=== PATIENT | female | born 1995 | race Caucasian/White ===

== ENCOUNTER 2019-08-11 10:05 | Outpatient (CLI) | payer OTHER ==
[2019-08-12 12:10] LABS: SARS-CoV-2 N Gene Positive; SARS-CoV-2 S Gene Positive; SARS-CoV-2 orf1ab Positive
[2019-08-12 12:11] LABS: SARS-CoV-2 MS2 Positive
== END 2019-08-11 10:06 | disposition home or self-care (01) ==
LOC: LABBT 10:05
PROVIDERS: ATTEND Student in an Organized Health Care Education/Training Program
DX: Z01.812 Encounter for preprocedural laboratory examination (principal); Z20.828 Contact with and (suspected) exposure to other viral communicable diseases
CPT/HCPCS: 87635; U0003

== ENCOUNTER 2019-08-14 18:00 | Inpatient (IN) | payer OTHER, SELFPAY ==
[~2019-08-14 18:00] MED LIST: Bupivacaine/Epinephrine 0.25% 30 ML VIAL ONE; EPHEDRINE 25 MG/5 ML SYRINGE ONE
--- NOTE | 2019-08-14 22:42 | PDOC.FPROB ---
FMR OB H&P: HPI - History of Present Illness Chief Complaint: mIOL Indentification: at 39.0 wks by LMP c/w 11.5 wk sono History of Present Illness: Pt is a 23 yo at 39.0 wks by LMP c/w 11.5 wk sono who presents for an mIOL 2/2 A2GDM. She does have history of gHTN. She has not had a diagnosis of gHTN during this . She denies vision changes, BULLOCK, worsening SOB, chest pain, and worsening LE edema. She was diagnosed with COVID prior to admission but states she remains asymptomatic. She denies LOF, Cx, vaginal bleeding, and discharge. On admission she had 3 severe range pressures but as stated she is asymptomatic. PCP: CHRISTEN Araujo/Julian FMR OB H&P: Current - Care : 2 Para: 1001 Gestational age: 39.0 wks Due date: 08/21/19 Dating Criteria: LMP c/w 11.5 sono Course/Complications: A2GDM - OB Labs Blood type: O RH: positive Antibody Screen: negative HIV: negative RPR: negative HepBsAg: negative Rubella: immune Gonorrhea: negative Chlamydia: negative 1 hour gtt: 168 3 hour GTT: 107/183/106/83 GBS: negative H&H: 11.4/33.8 FMR OB H&P: History - Past Medical History PMH: Allergic rhinitis, anemia - OB History OB History: Hx of gHTN in prior VAVD Hx of 3rd degree laceration A2GDM - metformin - WAREHOUSE RECORD CLERK History WAREHOUSE RECORD CLERK History: none - Surgical History Sx History: none - Social History Social History: No history of tobacco, alcohol, drugs - Family History Family History: non-contributory FMR OB H&P: Medications - Current Home Medications: Medication Instructions Recorded Confirmed Type Vit,Calc76/Iron/Folic 1 tablet PO DAILY 10/16/13 10/16/13 History [Prenatabs Rx Tablet] metFORMIN [Glucophage] 1 tab PO DAILY 08/14/19 08/14/19 History Allergies/Adverse Reactions: Allergies Allergy/AdvReac Type Severity Reaction Status Date / Time No Known Allergies Allergy Verified 10/16/13 18:22 FMR OB H&P: ROS - Review of Systems General: denies: fever/chills, weight/appetite/sleep changes Eyes: denies: vision changes, scotomas ENT: denies: rhinorrhea Cardiovascular: reports: edema. denies: chest pain Respiratory: reports: shortness of breath. denies: cough Gastrointestinal: denies: nausea, vomiting, diarrhea, constipation Genitourinary (Female): denies: vaginal discharge, contractions Neurologic: denies: headache Hematologic/Lymphatic: denies: prolonged or excessive bleeding Psychological: denies: depression, anxiety FMR OB H&P: Vital Signs - Maternal Vital signs: 3 elevated BP's as high as SBP 180's - Heart Tones Variability: moderate Acceleration: present Category: category 1 [place] contractions every: q6 mins on monitor - pt does not appreciate FMR OB H&P: Physical Exam - Physical Exam General: NAD, awake, alert and oriented HEENT: normocephalic and atraumatic, EOMI Neck: FROM, no JVD Heart: RRR, no murmurs/rubs/gallops, pulses present Deviation from normal: trace LE edema to mid musa General: CTAB, no respiratory distress, good air movement, no wheezing Abdomen: soft, gravid, non-tender, bowel sound present Musculoskeletal: pulses present, FROM in all four extremities Neurological: cranial nerves II through XII intact Skin: good tugor, capillary refill <2 seconds Lymphatic: no purpura, no petechia Psychiatric: intact recent and remote memory, good judgement and insight FMR OB H&P: A/P - Problem List (1) Term Current Visit: Yes Status: Acute Code(s): Z34.90 - ENCNTR FOR SUPRVSN OF NORMAL , UNSP, UNSP TRIMESTER (2) Gestational diabetes Current Visit: Yes Status: Acute Code(s): O24.419 - GESTATIONAL DIABETES MELLITUS IN , UNSP CONTROL (3) COVID-19 affecting in third trimester Current Visit: Yes Status: Acute Code(s): O98.513 - OTHER VIRAL DISEASES COMPLICATING , THIRD TRIMESTER; U07.1 - COVID-19 (4) Anemia in Current Visit: No Status: Acute Code(s): O99.019 - ANEMIA COMPLICATING , UNSPECIFIED TRIMESTER (5) Gestational hypertension Current Visit: No Status: Acute Code(s): O13.9 - GESTATIONAL HTN W/O SIGNIFICANT PROTEINURIA, UNSP TRIMESTER Disposition: 23 yo at 39.0 wks by LMP c/w 11.5 wk sono: # Term IUP Ramires: 8; SVE: 4/70/-2 Category 1 Strip - balloon place initially with pt at 3 cm - after manipulation pt was 4 cm with balloon placement. Pitocin initiated. Balloon placement to decrease cervical checks and COVID exposure. # gHTN w/ Severe Range Pressures No findings on exam. Platelets 160, Hgb 12.4, LDH 234, Creatinine 0.71, Uric 4.8 Pt took ASA until delivery for prior hx of gHTN but did not have diagnosis this . - Mg initiated - Monitor UOP - Pending PT/PTT, Protein:Creatinine Ratio - Adminstered Hydralazine 15 mg x 1 at onset of pressures - pt did have a palmar rash. Will d/c hydralazine and administer benadryl. - Start labatelol 20 IV for BP > 160/110 then notify physician # COVID + - Droplet precautions - Monitor symptoms # A2GDM 1 hr gtt 158, 3 hr gtt 107/183/106/83. Currently taking metformin 500 mg PO qhs [place]lock 58.9% 18 - q4hr BG checks - Nurse to notify if sugar > 120 # Anemia of - Hgb 12.4 TB Risk - needs screening in outpt setting # Hx of VAVD # Hx of 3rd Degree Laceration - pt wants TOLAC # GBS Negative Case discussed with Dr. Jordan Discussion: Date/Time: 08/14/190 This H&P was discussed with Dr. Mayra Guzman and Dr. Katie Jordan who agree with the above documentation and plan. Mayra Guzman MD -- This is a 23yo @ 39.0 wks by LMP/11.5wk sono. SHASTA 08/21/19. Here for mIOL due to A2GDM, on metformin. Hx of anemia - H/H pending. COVID + - droplet precautions, no symptoms. Agree with international sales manager note above. PE not performed by myself due to patient COVID status and limiting personnel in the room. Monitor glucose and BP closely. Will cover with ss insulin if sugars elevated - nurse to call if sugar >120. Patient with 3 severe range pressures - start Mg and monitor closely with Mg checks. Pre-E labs ordered. Strip appropriate. Expectant management. Will do cervical check. Will discuss care with attending Dr. Jordan. Addendum - Attending - Attending Attestation Date/Time: 08/15/19 0206 I personally evaluated the patient and discussed the management with Dr. Bolden and Thomas I agree with the History, Examination, Assessment and Plan documented above with any addition or exceptions noted below. 23 yo female at 39.0 wks by LMP/11.5 wk sono here for mIOL 2/2 A2GDM Patient denies LOF and VB. +FM. Denies BULLOCK, vision changes, abd pain, CP, SOB. Patient with continuous severe range pressures at time of admission. Mag started. Labs ordered. Given 20 mg of hydralizine. SVE 50/-3. Balloon placed. SVE afterwards 60/-3. - mIOL: Balloon placed. Start low dose pitocin per protocol. Continuous monitoring. - Severe preE vs Severe gHTN: Patient with prior hx of gHTN. Labs ordered. BP med given. Mag now started. - A2GDM: Has not been taking metformin as prescribed. Suppose to be on 500 mg qhs. Start glucose q4 hours then switch to q1 during stage 2. Keep less than 110. Will need 2 hour gtt at 6 wks pp. Trend glucose in . - hx of VAVD with previous . Risk of recurrence. Have vacuum handy. - hx of 3rd degree perineal laceration. Risk of recurrence. - COVID19 pos: Asymptomatic at present. Unsure if previous symptoms present. No respiratory distress. Afebrile. Place on precautions. Risk for complications relate to preE and HELLP. Labs pending. ABrayMD
[2019-08-14] MEDS ORDERED: Promethazine HCl 25 MG/ML VIAL IM PRN (22:53)
[2019-08-14] MEDS ORDERED: Butorphanol Tartrate 1 MG/ML VIAL SLOW IVP PRN (22:53)
[2019-08-14] MEDS ORDERED: hydrALAZINE 20 MG/ML VIAL SLOW IVP PRN (22:53)
[2019-08-14] MEDS ORDERED: Ondansetron PF 4 MG/2 ML Vial IVP PRN (22:53)
[2019-08-14] MEDS ORDERED: Docusate 100 MG CAP PO PRN (22:53)
[2019-08-14 23:28] VITALS: BMI 26.2
[2019-08-14 23:45] LABS: Hemoglobin 12.4 g/dL (12.0-16.0); Mean Corpuscular HGB CONC 34.5 g/dL (32.0-36.0); Mean Corpuscular Hemoglobin 27.8 pg (27.0-31.0); Mean Corpuscular Volume 80.6 fL (78.0-98.0); Mean Platelet Volume 11.4 fL (7.4-10.4); Platelet Count 160 thou/uL (130-400); RBC Distribution Width 13.6 % (11.5-14.5); Red Blood Cell (RBC) Count 4.45 mill/uL (4.20-5.40)
[2019-08-14] MEDS ORDERED: Magnesium 2 GM/50 ML 2 GM in Premix Bag 1 BAG IVPB SCH (23:45)
[2019-08-14] MEDS ORDERED: Magnesium Sulfate 4 GM in Sodium Chloride 0.9% 250 ML 250 ML IVPB SCH (23:45)
[2019-08-14] MEDS ORDERED: Magnesium Sulfate 20 gm/500 ml 20 GM/500 ML BAG ONE (23:46)
[2019-08-15] MEDS: Lactated Ringer's 1,000 ML IV SCH ×2 (00:06→03:03)
[2019-08-15] MEDS: Magnesium Sulfate 20 gm/500 ml 20 GM/500 ML BAG IVPB PRN ×3 (00:14→18:05)
[2019-08-15] MEDS ORDERED: Magnesium Sulfate 20 gm/500 ml 4 GM/100 ML BAG IVPB SCH (00:15)
[2019-08-15 00:23] LABS: Syphilis Antibody Nonreactive (Nonreactive); Syphilis Antibody Index 0.03 S/CO (<1.00 Non-Reactive)
[2019-08-15 00:24] LABS: HBSAg Index 0.14 S/CO (0-0.99); Hep B Surf Ag Non-Reactive S/CO (NonReactive)
[2019-08-15] MEDS ORDERED: Calcium Gluc 4.6 MEQ/10 ML (100 MG/ML) SLOW IVP PRN (00:36)
[2019-08-15] MEDS ORDERED: Lidocaine 1% (PF) 30 ML VIAL SC PRN (00:39)
[2019-08-15] MEDS ORDERED: Misoprostol 200 MCG TAB PR PRN (00:39)
[2019-08-15] MEDS ORDERED: Diphenoxylate HCl/Atropine Tablet PO PRN ×2 (00:39)
[2019-08-15] MEDS ORDERED: Ibuprofen 800 MG TAB PO PRN (00:39)
[2019-08-15] MEDS ORDERED: Carboprost 250 MCG/ML AMP IM PRN (00:39)
[2019-08-15] MEDS ORDERED: NS / Oxytocin 40 units/1000ml 1,000 ML IV PRN (00:39)
[2019-08-15 00:43] LABS: ALT (SGPT) 15 U/L (8-55); AST (SGOT) 21 U/L (5-34); Albumin 2.8 g/dL (3.5-5.0); Alkaline Phosphatase 352 U/L (40-110); Anion Gap 14 mmol/L (10-20); BUN (Urea Nitrogen) 12 mg/dL (7.0-18.7); Bilirubin, Total 0.2 mg/dL (0.2-1.2); Calc. Creatinine Clearance 122 mL/min (70-130); Calcium 8.3 mg/dL (7.8-10.44); Carbon Dioxide 19 mmol/L (22-29); Chloride 108 mmol/L (98-107); Estimated GFR-MDRD Greater than 90; Globulin 3.1 g/dL (2.4-3.5); Glucose 97 mg/dL (70-105); Potassium 4.1 mmol/L (3.5-5.1); Protein, Total 5.9 g/dL (6.0-8.3); Sodium 137 mmol/L (136-145); Uric Acid 4.8 mg/dL (2.6-6.0)
[2019-08-15] MEDS ORDERED: Labetalol HCl 100 MG/20 ML VIAL SLOW IVP PRN (00:44)
[2019-08-15] MEDS ORDERED: diphenhydrAMINE 50 MG/ML VIAL IVP SCH (00:45)
[2019-08-15] MEDS ORDERED: NS w/ Oxytocin 10 units 500 ML IV SCH ×2 (00:45)
[2019-08-15] MEDS ORDERED: hydrALAZINE 20 MG/ML VIAL SLOW IVP SCH (00:45)
[2019-08-15] MEDS ORDERED: Fentanyl 4 mcg/Bup 0.1% Cadd 100 ML ONE (00:47)
[2019-08-15 01:14] LABS: INR-International Normal Ratio 0.9; PTT 26.5 sec (22.9-36.1); Prothrombin Time 12.1 sec (12.0-14.7)
[2019-08-15 01:28] LABS: Creatinine, Urine 32.86 mg/dL (47-110)
[2019-08-15] MEDS ORDERED: EPHEDRINE 25 MG/5 ML SYRINGE SLOW IVP PRN (02:26)
[2019-08-15] MEDS ORDERED: Lactated Ringer's 500 ML IV PRN (02:26)
[2019-08-15] MEDS ORDERED: Acetaminophen 325 MG TAB PO PRN (02:26)
[2019-08-15] MEDS ORDERED: Promethazine HCl 25 MG/ML VIAL IM PRN (02:26)
[2019-08-15] MEDS ORDERED: diphenhydrAMINE 50 MG/ML VIAL IVP PRN (02:26)
[2019-08-15] MEDS ORDERED: Ondansetron PF 4 MG/2 ML Vial IVP PRN ×2 (02:26→13:13)
[2019-08-15] MEDS ORDERED: Naloxone HCl 0.4 mg/ml Vial IVP PRN ×2 (02:26)
[2019-08-15] MEDS ORDERED: Communication Order-Pharmacy FS SCH (02:30)
[2019-08-15] MEDS ORDERED: Fentanyl 4 mcg/Bupivacaine 0.1% Cassette 100 ML EPIDURAL SCH (02:30)
--- NOTE | 2019-08-15 03:18 | PDOC.LDPN ---
Labor & Delivery Progress Note - Assessment (1) Term Code(s): Z34.90 - ENCNTR FOR SUPRVSN OF NORMAL , UNSP, UNSP TRIMESTER Current Visit: Yes Status: Acute (2) Gestational diabetes Code(s): O24.419 - GESTATIONAL DIABETES MELLITUS IN , UNSP CONTROL Current Visit: Yes Status: Acute (3) COVID-19 affecting in third trimester Code(s): O98.513 - OTHER VIRAL DISEASES COMPLICATING , THIRD TRIMESTER ; U07.1 - COVID-19 Current Visit: Yes Status: Acute (4) Anemia in Code(s): O99.019 - ANEMIA COMPLICATING , UNSPECIFIED TRIMESTER Current Visit: No Status: Acute (5) Gestational hypertension Code(s): O13.9 - GESTATIONAL HTN W/O SIGNIFICANT PROTEINURIA, UNSP TRIMESTER Current Visit: No Status: Acute -: 23 yo at 39.1 wks by LMP c/w 11.5 wk sono: # Term IUP Ramires: 8; SVE: 4/70/-2 on initial check Category 1 Strip shaji q4mins - balloon place initially with pt at 3 cm - after manipulation pt was 4 cm with balloon placement. Pitocin initiated at 0230. Balloon placement to decrease cervical checks and COVID exposure. # Preeclampsia with severe features (BP and proteinuria) No findings on exam. Platelets 160, Hgb 12.4, LDH 234, Creatinine 0.71, Uric 4.8 , Protein:Creatinine ratio 3.65, PT/PTT WNL Pt took ASA until delivery for prior hx of gHTN but did not have diagnosis this . - Mg initiated - Monitor UOP - Adminstered Hydralazine 15 mg x 1 at onset of pressures - pt did have a palmar rash. Will d/c hydralazine and administer benadryl. - Start labatelol 20 IV for BP > 160/110 then notify physician # COVID + - Droplet precautions - Monitor symptoms # A2GDM 1 hr gtt 158, 3 hr gtt 107/183/106/83. Currently taking metformin 500 mg PO qhs [place] 58.9% 18 - q4hr BG checks - Nurse to notify if sugar > 120 # Anemia of - Hgb 12.4 TB Risk - needs screening in outpt setting # Hx of VAVD # Hx of 3rd Degree Laceration - pt wants TOLAC # GBS Negative Dispo: pressures have been well controlled. Currently 129/72. She did have episodes in SBP 100's and at time 1L fluids administered. Continue to monitor BP 's, increase pit as needed. Addendum - Attending - Attending Attestation Date/Time: 08/15/19 7432 I personally evaluated the patient and discussed the management with Dr. Bolden I agree with the History, Examination, Assessment and Plan documented above with any addition or exceptions noted below. 23 yo female at 39.1 wks - mIOL: Balloon now out. 5 cm. Currently on pitocin. Cat 2 tracing. Will give fluid bolus and hold pitocin. AROM and place internals. No decels at present. - PreE with severe: BP and proteinuria. No evidence of HELLP. BP now in 110s to 120s and concern for poor profusion. Now with low UOP over the last hour. Give fluid bolus. Has only received antihypertensive at time of admission. Mag level ordered due to UOP. Remains asymptomatic. - A2GDM: Glucose WNL. Will get POC now due to tracing. - hx of VAVD - hx of 3rd degree laceration - GBS negative - COVID19 pos ABrayMD
[2019-08-15] MEDS ORDERED: Lactated Ringer's 1,000 ML IV SCH (04:30)
--- NOTE | 2019-08-15 05:29 | PDOC.LDPN ---
Labor & Delivery Progress Note - Subjective Subjective: comfortable - Objective Vital signs reviewed and normal: yes (SBP 140's at end of check) - Assessment (1) Term Code(s): Z34.90 - ENCNTR FOR SUPRVSN OF NORMAL , UNSP, UNSP TRIMESTER Current Visit: Yes Status: Acute (2) Gestational diabetes Code(s): O24.419 - GESTATIONAL DIABETES MELLITUS IN , UNSP CONTROL Current Visit: Yes Status: Acute (3) COVID-19 affecting in third trimester Code(s): O98.513 - OTHER VIRAL DISEASES COMPLICATING , THIRD TRIMESTER ; U07.1 - COVID-19 Current Visit: Yes Status: Acute (4) Anemia in Code(s): O99.019 - ANEMIA COMPLICATING , UNSPECIFIED TRIMESTER Current Visit: No Status: Acute (5) Gestational hypertension Code(s): O13.9 - GESTATIONAL HTN W/O SIGNIFICANT PROTEINURIA, UNSP TRIMESTER Current Visit: No Status: Acute -: 23 yo at 39.1 wks by LMP c/w 11.5 wk sono: # Term IUP Ramires: 8; SVE: 4/70/-2 on initial check Category 1 Strip shaji q4mins - Balloon out. AROM pt at 0515 and placed FSE, IUPC. FHT's are minimal to moderate variability w/ little accels. Will discontinue pitocin. FHT's likely secondary to less perfusion with non-elevated BP's. UOP was 35 mls/hr supporting hypoperfusion. # Preeclampsia with severe features (BP and proteinuria) No findings on exam. Platelets 160, Hgb 12.4, LDH 234, Creatinine 0.71, Uric 4.8 , Protein:Creatinine ratio 3.65, PT/PTT WNL Pt took ASA until delivery for prior hx of gHTN but did not have diagnosis this . - Mg initiated - Monitor UOP - Adminstered Hydralazine 20 mg x 1 at onset of pressures - pt did have a palmar rash after administration. Will d/c hydralazine and administer benadryl. - Start labatelol 20 IV for BP > 160/110 then notify physician # COVID + - Droplet precautions - Monitor symptoms # A2GDM 1 hr gtt 158, 3 hr gtt 107/183/106/83. Currently taking metformin 500 mg PO qhs [place] 58.9% 08/04 - q4hr BG checks - Nurse to notify if sugar > 120 # Anemia of - Hgb 12.4 TB Risk - needs screening in outpt setting # Hx of VAVD # Hx of 3rd Degree Laceration - pt wants TOLAC # GBS Negative Dispo: monitor for recovery of FHT's after interventions stated above. Addendum - Attending - Attending Attestation Date/Time: 08/15/19 0603 I personally evaluated the patient and discussed the management with Dr. Bolden I agree with the History, Examination, Assessment and Plan documented above with any addition or exceptions noted below. - mIOL: Cat 2 tracing. Pit held. IVF bolus given. Position changed. AROM with FSE and IUPC placement at 0515. Fetus very reactive with manipulation. Now 7 cm. - preE with severe: BP now 110 to 120. Monitor UOP closely. Giving IVFs intermittently. Mag level pending. - COVID19 pos - A2GDM: Still awaiting POC glucose. - Medication reaction: [place] rash after hydralizine dose vs mag loading dose. Now resolved. - hx of VAVD - hx of 3rd degree laceration ABrayMD
--- NOTE | 2019-08-15 09:46 | PDOC.LDPN ---
Labor & Delivery Progress Note Plan: labor augmentation, pitocin for augmentation -: 23 yo at 39.1 wks by LMP c/w 11.5 wk sono: # Term IUP - SVE /-1 @ -711 - Cat 1 currently. 130/ moderate variability. Did note 1 variable decel and a few early decels earlier on strip review. - FSE, IUPC in place. Ctx q2-5 min. Not currently on pitocin. # Preeclampsia with severe features (BP and proteinuria) No findings on exam. Platelets 160, Hgb 12.4, LDH 234, Creatinine 0.71, Uric 4.8 , Protein:Creatinine ratio 3.65, PT/PTT WNL Pt took ASA until delivery for prior hx of gHTN but did not have diagnosis this . - Continue Mg til 24 hrs PP - Monitor UOP, adequate - Labatelol 20 IV for BP > 160/110, has not required recently # COVID + - Droplet precautions - Monitor symptoms # A2GDM 1 hr gtt 158, 3 hr gtt 107/183/106/83. Currently taking metformin 500 mg PO qhs [place]lock 58.9% 18 - q4hr BG checks - Nurse to notify if sugar > 120 # Anemia of - Hgb 12.4 TB Risk - needs screening in outpt setting # Hx of VAVD # Hx of 3rd Degree Laceration - pt wants TOLAC # GBS Negative Dispo: Start pitocin and nurse to recheck q2h. Position changes as needed. Good urine output.
[2019-08-15] MEDS ORDERED: Erythromycin Base 0.5% Oint 1 GM TUBE ONE (11:55)
[2019-08-15] MEDS ORDERED: Phytonadione Neonatal 1 MG/0.5 ML AMP ONE (11:55)
[2019-08-15] MEDS ORDERED: Carboprost 250 MCG/ML AMP ONE (12:22)
[2019-08-15] MEDS ORDERED: Misoprostol 200 MCG TAB ONE (12:22)
[2019-08-15] MEDS ORDERED: Adacel (T-DAP) 0.5 ML SYRINGE IM ONE (13:13)
[2019-08-15] MEDS ORDERED: Bisacodyl 10 MG SUPP PR PRN (13:13)
[2019-08-15] MEDS ORDERED: Milk Of Magnesia 30 ML UDCUP PO PRN (13:13)
[2019-08-15] MEDS ORDERED: Misoprostol 200 MCG TAB PR SCH (13:15)
[2019-08-15] MEDS ORDERED: NS / Oxytocin 40 units/1000ml 1,000 ML IV SCH (13:15)
--- NOTE | 2019-08-15 16:20 | PDOC.OPDEL ---
OB Operative/Delivery Note - Additional Findings/Plan Compilations/Other Findings: Delivering Physician: Sarah Araujo MD PGY-2 Attending: Kaiden Lenz MD Procedure: Spontaneous Vaginal Delivery Anesthesia: epidural QBL: 550 Pre-op Diagnosis: 1. Term intrauterine 2. A2GDM 3. Preeclampsia 4. Anemia of 5. COVID positive Post-op Diagnosis: 1. Term intrauterine , delivered 2. A2GDM 3. Preeclampsia 4. Anemia of 5. Vacuum assisted vaginal delivery 6. 2nd degree perineal laceration 7. COVID positive Indications: A 23y/o female presents for induction of labor for A2GDM Delivery Note: This is 23yo F @ 39.1wks who delivered a viable F infant at 1216. Following an uneventful antepartum course, a vigorous female was delivered over an intact perineum in the occipitoanterior position via vacuum assisted delivery on the first attempt due to maternal exhaustion. Anterior Shoulder and then remainder of the body delivered. No nuchal cord. The head was held down and mouth and nares were bulb suctioned. Cord clamped after delayed cord clamping and cut and cord blood collected. Placenta delivered intact in the [place] with a 3 vessel cord noted. Fundal massage was performed and the fundus was initially boggy, 800mg of Cytotec was placed rectally. The uterus was then noted to be firm. The cervix and vagina were inspected and found toto have a 2nd degree perineal laceration and repaired with 3-0 chromic gut in the usual fashion with good approximation and hemostasis. went to nursery in good condition for routine care. Apgars were 8/9 at 1 & 5 minutes, respectively. Patient tolerated delivery well and stayed in L&D for magnesium for preeclampsia and the negative pressure room due to COVID infection.
--- NOTE | 2019-08-15 17:15 | PDOC.PP ---
Post Progress Note Post Day #: 0 Weight Weight 63.049 kg Result Diagrams: 08/14/19 22:58 08/14/19 22:53 Additional Labs: Post Labs Blood Type O POSITIVE 08/14/19 22:58 Hep Bs Antigen Non-Reactive S/CO (NonReactive) 08/14/19 22:58 - Assessment/Plan Preeclampsia with severe features (BP and proteinuria) - POD #0 - Will check Mg level. - To reduce exposure will have nursing preform Mg physical exam. Continue to monitor urine output and BPs. - Continue Mg for 24hrs PP. Stop 08/15 1200. - Monitor UOP, adequate - Labatelol 20 IV for BP > 160/110. No severe range BPs. Highest: 155/90 COVID + - Droplet precautions A2GDM 1 hr gtt 158, 3 hr gtt 107/183/106/83. Currently taking metformin 500 mg PO qhs [place] 58.9% 08/04 - q4hr BG checks - Nurse to notify if sugar > 120 Anemia of - Hgb 12.4 - QBL 550. Received cytotec 800mg after delivery
[2019-08-15] MEDS ORDERED: HumaLOG 300 UNITS/3 ML VIAL SC SCH (17:45)
[2019-08-15] MEDS: Ferrous Sulfate 325 MG TAB PO SCH (18:10)
--- NOTE | 2019-08-15 21:42 | PDOC.BPN ---
- Brief Progress Note Mag check: S: per nurse pt is feeling well, no new complaints of BULLOCK/CP/SOB. O: BP wnl (SBP in 110s and 120s, all other vitals wnl), UO > 200ml/hr. Mg 6.9 A/P: continue mg. will plan for next check at 0130
[2019-08-16] MEDS: Magnesium Sulfate 20 gm/500 ml 20 GM/500 ML BAG IVPB PRN (02:09)
--- NOTE | 2019-08-16 02:20 | PDOC.BPN ---
- Brief Progress Note Subjective: Per nursing, patient is not having chest pain, headaches, vision changes or SOB. Objective: BP within normal limits, Systolic 110s-120s. All other vital normal. Urine output 150-300mL per hour. Per nursing, reflexes are +1. Assesment/Plan: Continue current management plan. Will recheck patient in 4 hours.
--- NOTE | 2019-08-16 06:09 | PDOC.BPN ---
- Brief Progress Note Subjective: Per nursing, patient is doing well with no complaints. No headache, SOB, scotomas, abdominal pain, edema. Objective: Patient's BP WNL with systolic pressures in the 110-120s. Other vitals WNL. DTRs 1+. Adequate urine output at 150-200mL/hr. Assessment/Plan: 1. Pre- eclampsia with severe features -patient doing well on magnesium -BP controlled -next Mag check at 1000
[2019-08-16] MEDS: Ibuprofen 800 MG TAB PO SCH ×4 (06:31→20:55)
[2019-08-16] MEDS: Docusate Calcium (SURFAK) 240 MG CAP PO SCH ×3 (06:31→20:55)
[2019-08-16] MEDS: Lactated Ringer's 1,000 ML IV SCH ×2 (06:31→15:10)
--- NOTE | 2019-08-16 06:33 | PDOC.PP ---
Post Progress Note Post Day #: 1 PO intake tolerated: yes Flatus: no Ambulation: no Weight Weight 63.049 kg - Physical Examination General: NAD Cardiovascular: no m/r/g, RRR Respiratory: clear to auscultation bilaterally Abdominal: + bowel sounds Fundus firm & at: umbilicus Skin: no rash Neurological: no gross focal deficits Deviation from normal: Reflexes 2+ Psychiatric: A&Ox3, normal affect Result Diagrams: 08/14/19 22:58 08/14/19 22:53 Additional Labs: Post Labs Blood Type O POSITIVE 08/14/19 22:58 Hep Bs Antigen Non-Reactive S/CO (NonReactive) 08/14/19 22:58 - Assessment/Plan Preeclampsia with severe features (BP and proteinuria) - POD #1 - Clear liquids - Continue Mg for 24hrs PP. Stop 08/15 1200. - Adequate UOP - Labatelol 20 IV for BP > 160/110. No severe range BPs. COVID + - Droplet precautions A2GDM - q4hr BG Anemia of - Hgb 12.4 - QBL 550. Received cytotec 800mg after delivery Addendum - Attending - Attending Attestation Date/Time: 08/16/19 1205 I personally evaluated the patient and discussed the management with Dr. Araujo. I agree with the History, Examination, Assessment and Plan documented above with any addition or exceptions noted below. Doing well, denies preE symptoms. No cough/congestion/fever/GI symptoms. DTRs 1+, no clonus. NAD, breathing comfortably. Hopeful d/c tomorrow once 24h off mag.
--- NOTE | 2019-08-16 12:23 | PDOC.PP ---
Post Progress Note Post Day #: 1 Subjective: Since pt is COVID positive, report is from nursing staff. Nurse reports that pt is doing well, but is sleepy due to mag. PO intake tolerated: no (NPO due to mag) Ambulation: no (Strict bedrest) Weight Weight 63.049 kg Result Diagrams: 08/14/19 22:58 08/14/19 22:53 Additional Labs: Post Labs Blood Type O POSITIVE 08/14/19 22:58 Hep Bs Antigen Non-Reactive S/CO (NonReactive) 08/14/19 22:58 - Assessment/Plan Magnesium check 1224 pm * No severe range blood pressures\ * Urine output greater than approximately 30cc/hr * Per nursing, PE is unremarkable; pt is doing well * Has been on mag 24 hrs, will discontinue now * Keep overnight to monitor BPs
[2019-08-16] MEDS: Ferrous Sulfate 325 MG TAB PO SCH ×2 (15:11→16:48)
[2019-08-16] MEDS: Polyethylene Glycol 3350 17 GM Packet PO SCH (15:13)
[2019-08-16] MEDS ORDERED: Lanolin Ointment 7 GM TUBE TOP PRN (15:28)
[2019-08-16] MEDS ORDERED: Preparation H Ointment 28 GM TUBE PR PRN (15:28)
[2019-08-16] MEDS ORDERED: Benzocaine-Menthol 82.5 ML CAN TOP PRN (15:28)
--- NOTE | 2019-08-17 05:48 | PDOC.PP ---
Post Progress Note Post Day #: 2 Subjective: Feeling well. Denies SOB, cough, diarrhea. Bottle feeding. Ambulating, urinating without difficulty. PO intake tolerated: yes Flatus: yes Ambulation: yes Vital Signs (12 hours) Temp Pulse Resp BP Pulse Ox 08/17/19 01:00 98.8 F 80 18 129/77 08/16/19 20:00 98.8 F 87 18 135/85 99 Weight Weight 63.049 kg - Physical Examination General: NAD Cardiovascular: no m/r/g, RRR Respiratory: clear to auscultation bilaterally, non-labored breathing Abdominal: + bowel sounds Neurological: no gross focal deficits Psychiatric: A&Ox3, normal affect Result Diagrams: 08/14/19 22:58 08/14/19 22:53 Additional Labs: Post Labs Blood Type O POSITIVE 08/14/19 22:58 Hep Bs Antigen Non-Reactive S/CO (NonReactive) 08/14/19 22:58 - Assessment/Plan sIUP, delivered VAVD - Continue routine PP care Preeclampsia with severe features (BP and proteinuria) - PPD #2 - s/p Mg 24hr PP, turned off at 1200 08/15 - Labatelol 20 IV for BP > 160/110. No severe range BPs. COVID + - Droplet precautions A2GDM - ACHS accuchecks - 2hr GTT 6wks PP Anemia of - Hgb 12.4 - QBL 550. Received cytotec 800mg after delivery Addendum - Attending - Attending Attestation Date/Time: 08/17/19 3748 I personally evaluated the patient and discussed the management with Dr. Araujo. I agree with the History, Examination, Assessment and Plan documented above with any addition or exceptions noted below. No covid symptoms. No severe pressures. I feel best for discharge today and monitor BP at home. Discussed with patient who agrees.
[2019-08-17] MEDS: Ibuprofen 800 MG TAB PO SCH ×2 (06:07→13:22)
[2019-08-17] MEDS: Ferrous Sulfate 325 MG TAB PO SCH (07:24)
[2019-08-17] MEDS: Polyethylene Glycol 3350 17 GM Packet PO SCH (07:55)
[2019-08-17] MEDS: Docusate Calcium (SURFAK) 240 MG CAP PO SCH (08:29)
[2019-08-17 14:55] VITALS: BP 134/72; TEMP 98.9
== END 2019-08-17 14:20 | disposition home or self-care (01) | DRG 805 ==
LOC: L&D 22:10 → 3SW 08-16 14:22
PROVIDERS: ADMIT Emergency Medicine; ATTEND Emergency Medicine
PROC: 8E0ZXY6 Isolation (ICD-10-PCS; 2019-08-14)
PROC: 10D07Z6 Extraction of Products of Conception, Vacuum, Via Natural or Artificial Opening (ICD-10-PCS; principal; 2019-08-15)
PROC: 0KQM0ZZ Repair Perineum Muscle, Open Approach (ICD-10-PCS; 2019-08-15)
PROC: 3E033VJ Introduction of Other Hormone into Peripheral Vein, Percutaneous Approach (ICD-10-PCS; 2019-08-15)
DX: O98.52 Other viral diseases complicating childbirth (principal); U07.1 COVID-19; Z37.0 Single live birth; O99.52 Diseases of the respiratory system complicating childbirth; J98.8 Other specified respiratory disorders; Z3A.39 39 weeks gestation of pregnancy; O99.02 Anemia complicating childbirth; O24.425 Gestational diabetes mellitus in childbirth, controlled by oral hypoglycemic drugs; O70.1 Second degree perineal laceration during delivery; D64.9 Anemia, unspecified; O13.4 Gestational [pregnancy-induced] hypertension without significant proteinuria, complicating childbirth; O14.14 Severe pre-eclampsia complicating childbirth
CPT/HCPCS: 36415; 36416; 51702; 80053; 82570; 83615; 83735; 84156; 84550; 85027; 85610; 85730; 86780; 86850; 86900; 86901; 87340; 88307; J0360; J1200; J2590; J3430; J3475; J3490